=== PATIENT | female | born 1965 | race Caucasian/White ===

== ENCOUNTER 2018-06-28 07:16 | Outpatient (CLI) | payer OTHER | END 2018-06-28 07:19 | disposition home or self-care (01) | LOC: SONOGRAMA 07:16 | DX: E04.1 Nontoxic single thyroid nodule (principal) ==

== ENCOUNTER 2020-08-06 08:18 | Outpatient (CLI) | payer OTHER | END 2020-08-06 08:28 | disposition home or self-care (01) | LOC: SONOGRAMA 08:18 | PROVIDERS: ATTEND Pathology Anatomic Pathology & Clinical Pathology | DX: E04.2 Nontoxic multinodular goiter (principal) ==

== ENCOUNTER 2022-10-11 07:19 | Outpatient (CLI) | payer OTHER | END 2022-10-11 07:28 | disposition home or self-care (01) | LOC: NUCLEAR 07:19 | PROVIDERS: ATTEND Internal Medicine Endocrinology, Diabetes & Metabolism | DX: E05.20 Thyrotoxicosis with toxic multinodular goiter without thyrotoxic crisis or storm (principal) | CPT/HCPCS: 78014; A9528 ==

== ENCOUNTER 2022-10-12 07:05 | Outpatient (CLI) | payer OTHER | END 2022-10-12 07:09 | disposition home or self-care (01) | LOC: NUCLEAR 07:05 | PROVIDERS: ATTEND Internal Medicine Endocrinology, Diabetes & Metabolism | DX: E05.20 Thyrotoxicosis with toxic multinodular goiter without thyrotoxic crisis or storm (principal) | CPT/HCPCS: 78014; A9528 ==

== ENCOUNTER 2023-04-12 05:38 | Day surgery (SDC) | payer OTHER ==
[~2023-04-12 05:38] MED LIST: ENALAPRIL MALEAT5 MG PO; TAPAZOLE5 MG PO; TENORMIN50 M1 PO
[2023-04-12] MEDS ORDERED: TRAMADOL HCL50 MG PO (11:05)
== END 2023-04-12 14:20 | disposition home or self-care (01) ==
LOC: CIR.AMB 05:38
PROVIDERS: ATTEND Surgery
DX: E06.3 Autoimmune thyroiditis (principal); E04.1 Nontoxic single thyroid nodule; Z20.822 Contact with and (suspected) exposure to COVID-19; Z88.6 Allergy status to analgesic agent